=== PATIENT | female | born 1930 | race African-American/Black ===

== ENCOUNTER 2017-01-25 15:05 | Inpatient (IN) ==
[2017-01-25] MEDS ORDERED: ONDANSETRON 4 MG/2 ML VIAL IV PRN (15:09)
[2017-01-25] MEDS ORDERED: HYDROmorphone 2 MG/1 ML VIAL IV PRN (15:09)
[2017-01-25] MEDS ORDERED: oxyCODONE/ACETAMINOPHEN 5-325 MG TABLET PO PRN (15:09)
[2017-01-25] MEDS ORDERED: ACETAMINOPHEN 325 MG TABLET PO PRN (15:09)
[2017-01-25 16:20] LABS: Basophils % 0.3 % (0.0-0.8); Eosinophils # 0.3 10*3/uL (0.0-0.87); Eosinophils % 3.1 % (0.00-10.9); Hematocrit 33.6 VOL% (35.7-47.0); Immature Granulocytes % 0.6 %; Immature Granulocytes Absolute 0.06 #; Lymphocytes # 2.6 10*3/uL (1.4-4.0); Lymphocytes % 24.5 % (21.3-54.2); Mean Corpuscular HGB Conc 32.7 GM/DL (32-36); Mean Corpuscular Hemoglobin 29 PG (27-34); Mean Corpuscular Volume 89.1 FL (87-102); Mean Platelet Volume 9.6 FL (9.6-12.0); Monocytes # 0.6 10*3/uL (0.11-0.8); Monocytes % 5.1 % (1.7-12.7); Neutrophils # 7.1 10*3/uL (1.4-7.4); Neutrophils % 66.4 % (38.7-73.9); Platelet Count 228 T/CUMM (130-400); Red Blood Count 3.77 MC/CUMM (3.8-5.5); Red Cell Distribution Width 14.3 % (9.3-17.3); White Blood Count 10.7 T/CUMM (4-12)
[2017-01-25 16:32] LABS: PT Patient Result 10.2 SECS; Partial Thromboplastin Time 28.2 SECS (0-40)
[2017-01-25 16:37] LABS: Alanine Aminotransferase 14 U/L (13-56); Albumin 3.4 G/DL (3.4-5.0); Alkaline Phosphatase 138 U/L (45-117); Aspartate Amino Transferase 14 U/L (0-37); Bilirubin,Total < 0.39 MG/DL (0.2-1.0); Calcium 8.7 MG/DL (8.5-10.1); Total Protein 7.5 G/DL (6.4-8.3)
[2017-01-25 16:38] LABS: Blood Urea Nitrogen 25 MG/DL (7-18); Glucose 111 MG/DL (74-106); Magnesium 2.3 MG/DL (1.8-2.4); Osmolality,Calculated 285.3 MOS/KG (273-304); Potassium 3.7 MMOL/L (3.5-5.1); Sodium 141 MMOL/L (136-145)
--- NOTE | 2017-01-25 20:04 | XRay Report ---
XR chest 2V Indication: Preop Comparison: Chest x-ray 06/23/2015. Technique: PA and lateral chest x-ray was performed. Findings: Heart size, mediastinal contour, and hilar structures demonstrate no significant abnormalities. The lung parenchyma is clear. Bones and soft tissues demonstrate no significant abnormalities. Impression: 1. No active cardiopulmonary disease. 01/25/2017 8:01 PM PROCEDURE INTERPRETED AT [facility] DEPARTMENT OF RADIOLOGY Final Report Signed by: Dr. Rupesh Zacarias
--- NOTE | 2017-01-25 22:16 | General Surg History&Physical ---
Assessment and Plan - Time spent with patient Time spent with patient: Greater than 30 minutes (1) Abscess, perineum Status: Acute Assessment and plan: Impression: Right perineal abscess 2. Diabetes 3. Urinary incontinence Plan surgery and wound care. Current Visit: Yes History of Present Illness Chief complaint: abscess of the perirectal perineal area. History of present illness: Ms. Baumann is a 86 year old female black who has had mass with pain in the right perineal area for about a week. Attempts at squeezing the area only made it worse. She on exam has right perineal abscess and I will admit for surgery. She has a urinary incontinent problem that may make wound care difficult. Home Medications Medication Instructions Recorded Confirmed Type Aspirin [Ecotrin] 81 mg PO DAILY 01/25/17 01/25/17 History Atorvastatin [Lipitor] 20 mg PO BEDTIME 01/25/17 01/25/17 History Furosemide [Furosemide] 40 mg PO DAILY 01/25/17 01/25/17 History Glimepiride [Glimepiride] 1 mg PO DAILY 01/25/17 01/25/17 History Levothyroxine Tab [Synthroid Tab] 50 mcg PO DAILY@0700 01/25/17 01/25/17 History Lisinopril [Lisinopril] 5 mg PO BID 01/25/17 01/25/17 History Meloxicam [Meloxicam] 15 mg PO DAILY 01/25/17 01/25/17 History Metformin HCl 500 mg PO DAILY 01/25/17 01/25/17 History Potassium Chloride 20 meq PO DAILY 01/25/17 01/25/17 History sitaGLIPtin [Januvia] 100 mg PO DAILY W/BREAKFAST 01/25/17 01/25/17 History Allergies Allergy/AdvReac Type Severity Reaction Status Date / Time No Known Allergies Allergy Verified 06/23/15 14:39 Medical,Surgical,& Family Hx - Medical History Cardio: History of: Hypertension HEENT: History of: Eye Problem (GLASSES), Dental Problems (DENTURES) Endocrine: History of: Diabetes Mellitus (NIDDM), Thyroid Disorder Musculoskeletal: History of: Musculoskeletal Problems (Right ankle FX in Nov) - Surgical History Reproductive Surgeries: Surgical HX of;: Hysterectomy - Family History Family History: Reports;: Family Diabetes, Family Hypertension, Family Stroke - Social History Smoking Status: Never smoker Frequency of Alcohol Use: None Type of Drug Use: None Exam - Constitutional Vitals: Period Temp Pulse Resp BP Sys/Gutierrez Pulse Ox Last 24 Hr 97.6 F-98.1 F 64-73 16-18 129-139/67-70 98-99 General appearance: mild distress - Head Head exam: Present: normal inspection - ENT ENT exam: Present: normal exam - Neck Neck exam: Present: normal inspection - Respiratory Respiratory exam: Present: clear to auscultation bilaterally, rales - Cardiovascular Cardiovascular exam: Present: RRR - GI/Abdominal GI/Abdominal exam: Present: hypoactive bowel sounds, soft. Absent: tenderness - Anus/Rectum Anus/Rectum: other (Right perineal area with mass and small necrotic center.) - Extremities Exam Extremities exam: Present: normal inspection - Back Exam Back exam: Present: normal inspection - Neurological Exam Neurological exam: Present: alert, oriented X3, CN II-XII intact - Skin Skin exam: Present: normal color, warm, dry 12 point system: reviewed and no additional remarkable complaints except as stated Quality Measures - VTE Contraindication to Pharmacological VTE Prophylaxis: High Risk of Bleeding Results - Labs CBC & BMP: 01/25/17 16:13 01/25/17 16:12 Lab Results: I have reviewed the past 24 hour labs
[2017-01-25] MEDS: SODIUM CHLORIDE 0.45% 1,000 ML IV SCH (22:42)
[2017-01-25] MEDS: DOCUSATE SODIUM 100 MG CAPSULE PO SCH (22:42)
--- NOTE | 2017-01-26 06:27 | EKG Report ---
Stationary ECG Study [facility] Test Date: 01/25/2017 4:46:59 PM Pat Name: ERICA COATES Department: Room: Gender: F Clinical Project Assistant: JB : [id number] Requested by: Anup Cordon Order Number: [id number] Reading MD: SHERINE MELENDEZ Intervals [place] Rate: 65 P: 55 [place]: 182 QRS: -23 QRSD: 103 T: 33 QT: 393 QTc: 405 Interpretive Statements SINUS RHYTHM BORDERLINE LEFT AXIS DEVIATION Electronically Signed On 01-26-17 06:27:05 CDT by SHERINE MELENDEZ [email or web address]
[2017-01-26] MEDS ORDERED: BUPIVACAINE 0.25% 50 ML VIAL ONE (06:58)
[2017-01-26] MEDS ORDERED: LIDOCAINE 1%/EPI INJ 20 ML VIAL ONE (06:58)
[2017-01-26] MEDS: LACTATED RINGERS 1,000 ML IV SCH ×2 (07:00→13:36)
[2017-01-26] MEDS ORDERED: GLUCAGON 1 MG VIAL IM PRN (07:57)
[2017-01-26] MEDS ORDERED: DEXTROSE 50% 25 GM/50 ML SYRINGE IV PRN (07:57)
[2017-01-26] MEDS ORDERED: CHLORHEXIDINE 4% SOLN 118 ML BOTTLE TOP ONE (08:00)
--- NOTE | 2017-01-26 08:06 | Operative Note ---
Date of procedure: 01/26/17 Pre-op diagnosis: Abscess right perineal gluteal area Post-op diagnosis: same Procedure: Operative note: Preoperative diagnosis: Patient with a mass with draining and pain right peroneal gluteal area. Postop diagnosis: Right gluteal abscess mass possibly secondary to a sebaceous cyst Procedure: Excisional debridement of mass with drainage and deep debridement Surgeon Dr. Cordon Anesthesia was general with local Brief history: 86-year-old Afro-Citizen Of [place] female who has had about a week history of a mass in the perineal area just been tender and hurting her they attempted to drain it by squeezing it and it made it worse since she was referred over to us. We admitted her to put her on some IV antibiotics of the brain to surgery get this dealt with under control find it what we are dealing with. Procedure With patient in dorsal lithotomy position prepped and draped in a sterile fashion timeout and antibiotics completed approaches area of the right gluteal area rather than peritoneal. This was not near the anus at this time. The preop mass was 4 cm x 3 cm in size. With that I infiltrated with a local anesthetic. Then because of the central ulcerated areas I went ahead and ellipsed around that central area and it lipstick area completely out. There was some drainage which we cultured this time but there was evidence to me that there was little sebaceous cyst here. I excised the whole area with the knife and then I took the cautery and use electrocautery to controlling bleeding. I then ran a cautery on the base of this granulating base and along the edges to make sure I got all the cyst wall completely removed. Once that was completed and look fairly dry but a Dakin's wet gauze in there along with a bulky dressing took patient recovery room. We had irrigated with saline solution prior to her dressing. In the postop wound that is present now is 2.5 x 1.5 x 0.8 cm in size. Estimated blood loss 2 cc Sponge count correct 2 Drains none Complications none Condition stable satisfactory Anesthesia: GETA, local (0.25% Marcaine with epinephrine mixed [id number] 1% Xylocaine plain) Surgeon / Physician: Anup Cordon Estimated blood loss: minimal Specimens: other (Cultures and tissue for pathology) Condition: stable Disposition: floor Results - Labs CBC & BMP: 01/25/17 16:13 01/25/17 16:12 Discharge Plan - Discharge Medications No Action Levothyroxine Tab [Synthroid Tab] 50 mcg PO DAILY@0700 Atorvastatin [Lipitor] 20 mg PO BEDTIME sitaGLIPtin [Januvia] 100 mg PO DAILY W/BREAKFAST Meloxicam [Meloxicam] 15 mg PO DAILY Lisinopril [Lisinopril] 5 mg PO BID Furosemide [Furosemide] 40 mg PO DAILY Aspirin [Ecotrin] 81 mg PO DAILY Potassium Chloride 20 meq PO DAILY Metformin HCl 500 mg PO DAILY Glimepiride [Glimepiride] 1 mg PO DAILY - Follow Up or Referral - Forms/Instructions
--- NOTE | 2017-01-26 08:12 | Anesthesia Post-Op ---
Anesthesia Post OP - Post Ansesthetic Evaluation Patient seen in post op: Yes Resp: within normal limits CV: within normal limits Mental: within normal limits Temp: within normal limits [id number]-Da-Mlxpxcyvl: within normal limits Nausea and Vomiting: within normal limits Pain: within normal limits
[2017-01-26] MEDS ORDERED: ONDANSETRON 4 MG/2 ML VIAL ONE (08:14)
[2017-01-26] MEDS ORDERED: PROPOFOL 200 MG/20 ML VIAL IV ONE (08:14)
[2017-01-26] MEDS ORDERED: fentaNYL 100 MCG/2 ML VIAL ONE (08:14)
[2017-01-26] MEDS ORDERED: SEVOFLURANE 1 UNIT/15 MINUTE INH ONE (08:14)
[2017-01-26] MEDS: SODIUM HYPOCHLORITE 0.25% IRRIG 473 ML BOTTLE TOP SCH (10:16)
[2017-01-26] MEDS: BACITRACIN OINT 0.9 GM PACK TOP SCH (10:16)
[2017-01-26] MEDS: sitaGLIPtin 100 MG TABLET PO SCH (10:50)
[2017-01-26] MEDS: ASPIRIN EC 81 MG TABLET PO SCH (10:51)
[2017-01-26] MEDS: LISINOPRIL 5 MG TABLET PO SCH ×2 (10:51→23:03)
[2017-01-26] MEDS: MELOXICAM 7.5 MG TABLET PO SCH (10:51)
[2017-01-26] MEDS: GLIMEPIRIDE 2 MG TABLET PO SCH (10:51)
[2017-01-26] MEDS: FUROSEMIDE 40 MG TABLET PO SCH (10:52)
[2017-01-26] MEDS: DOCUSATE SODIUM 100 MG CAPSULE PO SCH ×2 (10:52→23:03)
[2017-01-26] MEDS: PANTOPRAZOLE 40 MG TABLET PO SCH (10:52)
[2017-01-26] MEDS: POTASSIUM CHLORIDE 20 MEQ TABLET PO SCH (10:52)
[2017-01-26] MEDS: metFORMIN 500 MG TABLET PO SCH (10:52)
[2017-01-26] MEDS ORDERED: PHENOL 1.4% THROAT SPRAY 177 ML BOTTLE PO PRN (11:19)
[2017-01-26] MEDS: INSULIN REGULAR 100 UNIT/ML SUBCUT SCH ×2 (13:02→16:41)
[2017-01-26] MEDS: ceFAZolin 2,000 MG in PREMIX 1 EACH IV SCH ×2 (13:49→23:03)
[2017-01-26] MEDS: SODIUM CHLORIDE 0.45% 1,000 ML IV SCH ×2 (16:40→18:45)
[2017-01-26] MEDS ORDERED: ATORVASTATIN 20 MG TABLET PO SCH (21:00)
--- NOTE | 2017-01-26 21:10 | Internal Medicine Consult Note ---
Assessment and Plan (1) Diabetes Status: Chronic Qualifiers: Diabetes mellitus type: type 2 Diabetes mellitus complication status: with skin complications Diabetes mellitus complication detail: with other skin ulcer Diabetes mellitus care home insulin use: without care home use Qualified Code(s): E11.622 - Type 2 diabetes mellitus with other skin ulcer (2) Hypertension Status: Chronic Qualifiers: Hypertension type: essential hypertension Qualified Code(s): I10 - Essential (primary) hypertension (3) Abscess, perineum Status: Acute (4) Chronic renal insufficiency Status: Chronic Qualifiers: Chronic kidney disease stage: stage 3 (moderate) Qualified Code(s): N18.3 - Chronic kidney disease, stage 3 (moderate) History of Present Illness - Data of Consult Consult date: 01/26/17 Requesting Physician: Anup Cordon Primary care physician: Lisa Smith - Consult Narrative Reason for consult: courtesy consult History of present illness: Ms. Baumann is a 86 year old female with history of DM, HTN, chronic renal insufficiency, OA, hypothyroid, who is in hospital for surgical debridement of perineum abscess. Home Health nurse had contacted clinic and we referred to Dr. Cordon for evaluation. She has had debridement and feeling better. Soon to go home. CC: Anup Cordon MD - Home Medications and Allergies Home Medications: Home Medications Medication Instructions Recorded Confirmed Type Aspirin [Ecotrin] 81 mg PO DAILY 01/25/17 01/25/17 History Atorvastatin [Lipitor] 20 mg PO BEDTIME 01/25/17 01/25/17 History Furosemide 40 mg PO DAILY 01/25/17 01/25/17 History Glimepiride 1 mg PO DAILY 01/25/17 01/25/17 History Levothyroxine Tab [Synthroid Tab] 50 mcg PO DAILY@0700 01/25/17 01/25/17 History Lisinopril 5 mg PO BID 01/25/17 01/25/17 History Meloxicam 15 mg PO DAILY 01/25/17 01/25/17 History Metformin HCl 500 mg PO DAILY 01/25/17 01/25/17 History Potassium Chloride 20 meq PO DAILY 01/25/17 01/25/17 History sitaGLIPtin [Januvia] 100 mg PO DAILY W/BREAKFAST 01/25/17 01/25/17 History Acetaminophen Tab [Tylenol Tab] 650 mg PO Q6H PRN tablet 01/27/17 Rx Sodium Hypochlorite 0.25% Irr 10 applic TOP DAILY #1 bottle 01/27/17 Rx [Dakins 1/2 Strength 0.25% Soln] Sulfameth/Trimeth 800-160 Tab 1 tablet PO BID #20 tablet 01/27/17 Rx [Bactrim DS Tab] oxyCODONE/ACETAMINOPHEN 5-325 1 tablet PO Q8H PRN #14 tablet 01/27/17 Rx [Percocet 5-325] Allergies/Adverse Reactions: Allergies Allergy/AdvReac Type Severity Reaction Status Date / Time No Known Allergies Allergy Verified 06/23/15 14:39 - Constitutional Constitutional: Present: weakness - Cardiovascular Cardiovascular: Absent: chest pain at rest - Respiratory Respiratory: Absent: cough, wheezing - Gastrointestinal Gastrointestinal: Absent: abdominal pain, nausea Medical,Surgical,& Family Hx - Medical History Cardio: History of: Hypertension Neurology: No history of: Seizures HEENT: History of: Eye Problem (GLASSES), Dental Problems (DENTURES) Endocrine: History of: Diabetes Mellitus (NIDDM), Thyroid Disorder Musculoskeletal: History of: Musculoskeletal Problems (Right ankle FX in Nov) - Surgical History Reproductive Surgeries: Surgical HX of;: Hysterectomy Orthopedic Surgeries: Surgical HX of;: Orthopedic Surgery (fx ankle) - Family History Family History: Reports;: Family Diabetes, Family Hypertension, Family Stroke - Social History Smoking Status: Never smoker Frequency of Alcohol Use: None Type of Drug Use: None Functional capacity: wheelchair bound Exam (Progress Note) - Constitutional Vitals: Period Temp Pulse Resp BP Sys/Gutierrez Pulse Ox Last 24 Hr 96.2 F-98.6 F 50-75 16-20 96-151/55-75 97-100 General appearance: no acute distress - Head Head exam: Present: normocephalic - Eye Eye exam: Present: EOMI - Respiratory Respiratory exam: Present: clear to auscultation bilaterally - Cardiovascular Cardiovascular exam: Present: regular rate and rhythm - GI/Abdominal GI/Abdominal exam: Present: soft. Absent: tenderness - Extremities Exam Extremities exam: Absent: edema - Neurological Exam Neurological exam: Present: alert - Psychiatric Psychiatric exam: Present: normal mood - Skin Skin exam: Present: warm, dry Results - Labs CBC & BMP: 01/27/17 05:20 01/27/17 05:20 Specialty Discharge - Follow Up or Referrals Follow up with: Anup Cordon MD [Primary Care Provider] - 02/25/17 10:45 am
[2017-01-27] MEDS: INSULIN REGULAR 100 UNIT/ML SUBCUT SCH ×3 (00:56→12:32)
[2017-01-27] MEDS ORDERED: ENOXAPARIN 40 MG/0.4 ML SYRINGE SUBCUT SCH (01:54)
[2017-01-27 05:55] LABS: Basophils % 0.1 % (0.0-0.8); Eosinophils # 0.3 10*3/uL (0.0-0.87); Eosinophils % 3.4 % (0.00-10.9); Hematocrit 28.1 VOL% (35.7-47.0); Hemoglobin 9.2 GM/DL (12.0-16.0); Immature Granulocytes % 0.7 %; Immature Granulocytes Absolute 0.06 #; Lymphocytes # 2.3 10*3/uL (1.4-4.0); Lymphocytes % 24.9 % (21.3-54.2); Mean Corpuscular HGB Conc 32.7 GM/DL (32-36); Mean Corpuscular Hemoglobin 29 PG (27-34); Monocytes # 0.4 10*3/uL (0.11-0.8); Monocytes % 4.9 % (1.7-12.7); Platelet Count 192 T/CUMM (130-400); Red Blood Count 3.23 MC/CUMM (3.8-5.5); Red Cell Distribution Width 13.9 % (9.3-17.3); White Blood Count 9.1 T/CUMM (4-12)
[2017-01-27 06:38] LABS: Calcium 8.6 MG/DL (8.5-10.1)
[2017-01-27] MEDS: SODIUM CHLORIDE 0.45% 1,000 ML IV SCH (06:49)
[2017-01-27] MEDS ORDERED: LEVOTHYROXINE 50 MCG TABLET PO SCH (07:00)
[2017-01-27] MEDS: MELOXICAM 7.5 MG TABLET PO SCH (08:55)
[2017-01-27] MEDS: GLIMEPIRIDE 2 MG TABLET PO SCH (08:55)
[2017-01-27] MEDS: DOCUSATE SODIUM 100 MG CAPSULE PO SCH (08:55)
[2017-01-27] MEDS: LISINOPRIL 5 MG TABLET PO SCH (08:55)
[2017-01-27] MEDS: metFORMIN 500 MG TABLET PO SCH (08:55)
[2017-01-27] MEDS: PANTOPRAZOLE 40 MG TABLET PO SCH (08:55)
[2017-01-27] MEDS: sitaGLIPtin 100 MG TABLET PO SCH (08:56)
[2017-01-27] MEDS: FUROSEMIDE 40 MG TABLET PO SCH (08:56)
[2017-01-27] MEDS: ASPIRIN EC 81 MG TABLET PO SCH (08:56)
[2017-01-27] MEDS: POTASSIUM CHLORIDE 20 MEQ TABLET PO SCH (08:56)
--- NOTE | 2017-01-27 09:17 | Discharge Summary ---
Hospital Course - Hospital Course Hospital Course: Discharge summary: Discharge diagnoses: Right gluteal abscess Urinary incontinence Procedure: Excisional debridement of right gluteal abscess with sebaceous cyst Surgeon Dr. Cordon Brief summary: 86-year-old Afro-[place] female who is admitted for an abscess in the right gluteal area. This is been going on for about a week and it got worse after they attempted to squeeze on it. She has been tender and sore difficult to sit down and it has not improved over time. Because they live pretty far away would put her in the hospital on some IV antibiotics like to bring her surgery at this time for further debridement. At the time of surgery were able to go ahead and excise this area finding what looked like a sebaceous cyst underneath this area. Once the wound bed was clean we packed and cleaned it and started to teach the patient and family how to care for. They feel pretty comfortable with the care of this ends her pain and discomfort is much better. Labs are stable so we will go ahead and plan to discharge her lithium continue home health care and be sure that they can get this wound in shape. Patient has a problem with some urinary incontinence and is can make it a challenge to keep a good clean dressing over this area and keep it dry. - Time spent with patient Time with patient DS: Less than 30 minutes Diagnosis - Discharge Diagnosis (1) Abscess, perineum Status: Acute (2) Urinary incontinence Status: Chronic Specialty Discharge - Follow Up or Referrals Follow up with: Anup Cordon MD [Primary Care Provider] - 1 Month - Speciality Discharge Instructions Surgery Instructions: 1. Continue some home health care to count to try to get this wound under control. 2. Try to limit sitting is much as possible. 3. Change dressing often as needed especially if she has any urines that gets into the wound bed Discharge Plan - Discharge Data Disposition: Home Health Service Condition at Discharge: Stable Discharge Diet: advance to your usual diet Activity: increase activity as tolerated, other (Sit only on the special pad and try to avoid prolonged sitting) Hygiene: may shower, keep area(s) dry (Attempt to keep the area and the dressings are clean and dry as possible changing him as needed) Weight Bearing at Discharge: weight bear as tolerated Contact your physician if you experience:: fever over 101, Redness or swelling, Bleeding, pain uncontrolled by pain medications Wound / Dressing Care Instructions: Wound care twice a day to the right gluteal wound. 1. Wash with Hibiclens. 2. Irrigate the wound with 10 cc of half- strength Dakin's. 3. Apply bacitracin ointment to the wound bed. 4. Try to cover with Mepilex border gauze or island dressing - Discharge Medications New Acetaminophen Tab [Tylenol Tab] 650 mg PO Q6H PRN tablet PRN Reason: Pain Mild (1-3) And/Or Fever Sodium Hypochlorite 0.25% Irr [Dakins 1/2 Strength 0.25% Soln] 10 applic TOP DAILY #1 bottle Sulfameth/Trimeth 800-160 Tab [Bactrim DS Tab] 1 tablet PO BID #20 tablet oxyCODONE/ACETAMINOPHEN 5-325 [Percocet 5-325] 1 tablet PO Q8H PRN #14 tablet PRN Reason: Pain Moderate (4-7) Continue Levothyroxine Tab [Synthroid Tab] 50 mcg PO DAILY@0700 Atorvastatin [Lipitor] 20 mg PO BEDTIME sitaGLIPtin [Januvia] 100 mg PO DAILY W/BREAKFAST Meloxicam 15 mg PO DAILY Lisinopril 5 mg PO BID Furosemide 40 mg PO DAILY Aspirin [Ecotrin] 81 mg PO DAILY Potassium Chloride 20 meq PO DAILY Metformin HCl 500 mg PO DAILY Glimepiride 1 mg PO DAILY - Follow Up or Referral - Forms/Instructions Exam - Constitutional Vitals: Period Temp Pulse Resp BP Sys/Gutierrez Pulse Ox Last 24 Hr 96.2 F-98.7 F 50-79 16-20 115-151/56-80 97-100 General appearance: no acute distress - Head Head exam: Present: normal inspection - ENT ENT exam: Present: normal exam - Neck Neck exam: Present: normal inspection - Respiratory Respiratory exam: Present: rales - Cardiovascular Cardiovascular exam: Present: regular rate and rhythm - GI/Abdominal GI/Abdominal exam: Present: hypoactive bowel sounds, soft, other (Right gluteal wound is looking good and clean and showing no signs of any unusual swelling) - Extremities Exam Extremities exam: Present: normal inspection - Back Exam Back exam: Present: normal inspection - Neurological Exam Neurological exam: Present: alert, oriented X3, CN II-XII intact - Psychiatric Psychiatric exam: Present: normal affect, normal mood - Skin Skin exam: Present: normal color, warm, dry Discharge Results Procedures and tests throughout hospitalization: Pending Orders 08/08/17 07:50 Abscess Culture Routine Anaerobic Culture Routine Labs on day of discharge: Labs from last 24 hours 01/27/17 01/27/17 01/27/17 07:09 05:20 05:20 WBC 9.1 RBC 3.23 L Hgb 9.2 L Hct 28.1 L MCV 87.0 MCH 29 MCHC 32.7 RDW 13.9 Plt Count 192 MPV 10.0 Neut % (Auto) 66.0 Lymph % (Auto) 24.9 Garrard % (Auto) 4.9 Eos % (Auto) 3.4 Baso % (Auto) 0.1 Neut # (Auto) 6.0 Lymph # (Auto) 2.3 Garrard # (Auto) 0.4 Eos # (Auto) 0.3 Baso # (Auto) 0.0 Immature Gran % 0.7 Nucleated RBC % 0.0 Immature Gran # 0.06 Nucleated RBCs # 0.00 Immature Plt Fraction 0.0 Sodium 143 Potassium 4.0 Chloride 109 H Carbon Dioxide 28 Anion Gap 10.0 BUN 20 H Creatinine 1.60 H GFR Calculation 38 BUN/Creatinine Ratio 12.00 Glucose 104 POC Glucose 138 H Calculated Osmolality 287.0 Calcium 8.6 01/26/17 01/26/17 01/26/17 19:56 15:33 10:59 WBC RBC Hgb Hct MCV MCH MCHC RDW Plt Count MPV Neut % (Auto) Lymph % (Auto) Garrard % (Auto) Eos % (Auto) Baso % (Auto) Neut # (Auto) Lymph # (Auto) Garrard # (Auto) Eos # (Auto) Baso # (Auto) Immature Gran % Nucleated RBC % Immature Gran # Nucleated RBCs # Immature Plt Fraction Sodium Potassium Chloride Carbon Dioxide Anion Gap BUN Creatinine GFR Calculation BUN/Creatinine Ratio Glucose POC Glucose 104 139 H 160 H Calculated Osmolality Calcium 01/26/17 10:19 WBC RBC Hgb Hct MCV MCH MCHC RDW Plt Count MPV Neut % (Auto) Lymph % (Auto) Garrard % (Auto) Eos % (Auto) Baso % (Auto) Neut # (Auto) Lymph # (Auto) Garrard # (Auto) Eos # (Auto) Baso # (Auto) Immature Gran % Nucleated RBC % Immature Gran # Nucleated RBCs # Immature Plt Fraction Sodium Potassium Chloride Carbon Dioxide Anion Gap BUN Creatinine GFR Calculation BUN/Creatinine Ratio Glucose POC Glucose 176 H Calculated Osmolality Calcium DS: Provider Date of admission: 01/25/17 15:35 Primary care physician: Anup Cordon MD Attending physician on admission: Anup Cordon MD Consults: 01/25/17 15:16 Consult to Anesthesiology [CONS] Routine Consulting Provider: Reason for Anesthesiology: Pre-op Clearance Consult to Physician [CONS] Routine Comment: Consulting Provider: Lisa Smith Consulting Provider Notified: Yes When should Consulting Provider be notified: Now Person Notified: letty called Date Notified: 01/26/17 Time Notified: 08:53 Consult Notification Comment: patient known to you for surgery tomorrow for perineal abscess. 01/25/17 17:15 Consult to Pastoral Services [CONS] Routine Comment: Pastoral Screen: Request Assault Amphibious Vehicle Crewman Visit Pastoral Screen Source of Request: Family 01/26/17 07:52 Consult to Wound Care - [place] [CONS] Routine Reason for Wound Care: Wound Care Management Consult Comment: teach family on how to do wound care. 01/26/17 08:01 Consult to Case Mgmt/Social Srvs [CONS] Routine Reason for Case Mgmt/Social Srvs: Discharge Planning Consult Comment: home health for wound care Discharging clinician: Anup Cordon MD Expected date of discharge: 01/27/17
[2017-01-27 11:32] VITALS: BP 108/52
--- NOTE | 2017-01-27 12:19 | Pathology Report from [facility] ---
[facility] [place] : [id number] PATIENT NAME : Erica Baumann ORDERING DR : MARLEN CASTRO MD CLINICAL HX: RT perineal abscess POST-OP DX: Same SPECIMEN INFO: RT perineal abscess tissue GROSS DESCRIPTION: The specimen is received in formalin labeled ERICA BAUMANN consists of a 2.3 x 1.0 x 0.5 cm adair-brown ellipse of skin and attached subcutaneous tissue. A erythematous ulcerated area on skin surface measures 0.7 cm. Music Leader section submitted in one cassette. DIAGNOSIS FOR ERICA BAUMANN: RIGHT PERINEAL ABSCESS TISSUE, I & D: Abscess with marked acute inflammation and necrosis. COLLECTED DATE: 01/26/2017 [facility] REPORT DATE: 01/27/2017 ELECTRONICALLY SIGNED BY: Miryam Gasca M.D. 01/27/2017 - 9:38:19 [facility]
[2017-01-27] MEDS: BACITRACIN OINT 0.9 GM PACK TOP SCH (12:32)
[2017-01-27] MEDS: SODIUM HYPOCHLORITE 0.25% IRRIG 473 ML BOTTLE TOP SCH (12:32)
== END 2017-01-27 13:25 | disposition home health service (06) | DRG 572 ==
LOC: N.3E 15:35
PROVIDERS: ADMIT Specialist; ATTEND Specialist

== ENCOUNTER 2019-01-03 02:53 | Inpatient (IN) ==
[2019-01-03 04:32] LABS: Basophils % 0.1 % (0.0-0.8); Eosinophils # 0.2 10*3/uL (0.0-0.87); Eosinophils % 1.7 % (0.00-10.9); Hemoglobin 10.4 GM/DL (12.0-16.0); Immature Granulocytes % 0.4 %; Immature Granulocytes Absolute 0.06 #; Lymphocytes # 2.2 10*3/uL (1.4-4.0); Lymphocytes % 15.8 % (21.3-54.2); Mean Corpuscular HGB Conc 31.5 GM/DL (32-36); Mean Corpuscular Volume 91.2 FL (87-102); Mean Platelet Volume 9.8 FL (9.6-12.0); Monocytes % 5.6 % (1.7-12.7); Neutrophils % 76.4 % (38.7-73.9); Platelet Count 238 T/CUMM (130-400); Red Blood Count 3.62 MC/CUMM (3.8-5.5); Red Cell Distribution Width 14.1 % (9.3-17.3); White Blood Count 13.7 T/CUMM (4-12)
[2019-01-03 04:45] LABS: INR 0.9; PT Patient Result 9.9 SECS; Partial Thromboplastin Time 27.8 SECS (0-40)
[2019-01-03] MEDS ORDERED: hydrALAZINE 20 MG/1 ML VIAL IV STA ×2 (04:54→06:51)
[2019-01-03 04:57] LABS: Amorphous Crystals,Urine Occasional /HPF (Few); Apearance,Urine CLEAR (Clear); Bacteria,Urine Occasional /HPF (Few); Bilirubin,Urine Negative (Negative); Blood, Urine Negative (Negative); Glucose,Urine (UA) Negative (Negative); Ketones,Urine Negative (Negative); Mucus,Urine Occasional /LPF (Occasional); Nitrite,Urine Negative (Negative); Protein,Urine Negative; RBC,Urine 1 /HPF (0-4); Squamous Epithelial Cell,Urine Occasional /HPF (0-10); Urine Color Straw (Yellow); Urine Specific Gravity 1.006 (1.001-1.035); Urine Urobilinogen < 2.0 EU/DL (0.2-1.0); WBC,Urine 1 /HPF (0-6)
[2019-01-03 04:58] LABS: Albumin 2.9 G/DL (3.4-5.0); Bilirubin,Total 0.9 MG/DL (0.2-1.0); Calcium 9.2 MG/DL (8.5-10.1); Osmolality,Calculated 277.1 MOS/KG (273-304); Total Protein 7.8 G/DL (6.4-8.3)
[2019-01-03] MEDS ORDERED: MORPHINE 4 MG/1 ML VIAL IV STA (07:13)
[2019-01-03] MEDS ORDERED: FAMOTIDINE 20 MG/2 ML VIAL IV STA (07:13)
[2019-01-03] MEDS ORDERED: PIPERACILLIN/TAZOBACTAM 3,375 MG in SODIUM CHLORIDE 0.9% 100 ML IV STA (07:13)
[2019-01-03] MEDS ORDERED: ONDANSETRON 4 MG/2 ML VIAL IV ONE (07:13)
[2019-01-03] MEDS ORDERED: ACETAMINOPHEN 325 MG TABLET PO PRN (09:16)
[2019-01-03] MEDS ORDERED: HYDROmorphone 2 MG/1 ML VIAL IV PRN (09:16)
[2019-01-03] MEDS ORDERED: LACTATED RINGERS 1,000 ML IV SCH (09:16)
[2019-01-03] MEDS ORDERED: ONDANSETRON 4 MG/2 ML VIAL IV PRN (09:16)
[2019-01-03] MEDS ORDERED: PROMETHAZINE 25 MG/1 ML VIAL IM PRN (09:16)
[2019-01-03] MEDS ORDERED: GLUCAGON 1 MG VIAL IM PRN (09:45)
[2019-01-03] MEDS ORDERED: DEXTROSE 50% 25 GM/50 ML VIAL IV PRN (09:45)
[2019-01-03] MEDS: LEVOTHYROXINE 75 MCG TABLET PO SCH (09:56)
[2019-01-03] MEDS: PANTOPRAZOLE 40 MG TABLET PO SCH (09:57)
[2019-01-03] MEDS: PIPERACILLIN/TAZOBACTAM 3,375 MG in SODIUM CHLORIDE 0.9% 100 ML IV SCH ×2 (11:00→17:32)
[2019-01-03] MEDS: SODIUM CHLORIDE 0.45% 1,000 ML IV SCH ×2 (11:18→17:36)
[2019-01-03] MEDS: INSULIN LISPRO 100 UNIT/ML SUBCUT SCH ×2 (12:07→17:32)
[2019-01-03] MEDS: LISINOPRIL 5 MG TABLET PO SCH (21:01)
[2019-01-04] MEDS: INSULIN LISPRO 100 UNIT/ML SUBCUT SCH ×4 (00:02→18:16)
[2019-01-04] MEDS: ENOXAPARIN 40 MG/0.4 ML SYRINGE SUBCUT SCH (02:45)
[2019-01-04] MEDS: SODIUM CHLORIDE 0.45% 1,000 ML IV SCH ×4 (03:54→20:40)
[2019-01-04] MEDS: PIPERACILLIN/TAZOBACTAM 3,375 MG in SODIUM CHLORIDE 0.9% 100 ML IV SCH ×3 (03:54→20:43)
[2019-01-04 05:49] LABS: Basophils % 0.2 % (0.0-0.8); Eosinophils # 0.3 10*3/uL (0.0-0.87); Eosinophils % 3.1 % (0.00-10.9); Hematocrit 31.7 VOL% (35.7-47.0); Hemoglobin 9.8 GM/DL (12.0-16.0); Immature Granulocytes % 0.3 %; Immature Granulocytes Absolute 0.03 #; Lymphocytes % 21.9 % (21.3-54.2); Mean Corpuscular HGB Conc 30.9 GM/DL (32-36); Mean Corpuscular Volume 93.5 FL (87-102); Mean Platelet Volume 9.7 FL (9.6-12.0); Monocytes % 5.7 % (1.7-12.7); Neutrophils % 68.8 % (38.7-73.9); Platelet Count 226 T/CUMM (130-400); Red Blood Count 3.39 MC/CUMM (3.8-5.5); Red Cell Distribution Width 14.5 % (9.3-17.3); White Blood Count 9.1 T/CUMM (4-12)
[2019-01-04 06:20] LABS: Albumin 2.7 G/DL (3.4-5.0); Bilirubin,Total 0.6 MG/DL (0.2-1.0); Total Protein 7.2 G/DL (6.4-8.3)
[2019-01-04] MEDS: LEVOTHYROXINE 75 MCG TABLET PO SCH (06:55)
[2019-01-04] MEDS: CYANOCOBALAMIN 500 MCG TABLET PO SCH (08:50)
[2019-01-04] MEDS: LISINOPRIL 5 MG TABLET PO SCH (08:50)
[2019-01-04] MEDS: ASPIRIN EC 325 MG TABLET PO SCH (08:53)
[2019-01-04] MEDS: MAGNESIUM OXIDE 400 MG TABLET PO SCH (08:53)
[2019-01-04] MEDS: PANTOPRAZOLE 40 MG TABLET PO SCH (08:53)
[2019-01-04] MEDS: CALCIUM (CARBONATE)/VITAMIN D 600 MG-400 UNIT TABLET PO SCH (08:53)
[2019-01-04] MEDS ORDERED: MIDAZOLAM 2 MG/2 ML VIAL IV ONE (14:14)
[2019-01-04] MEDS ORDERED: fentaNYL 100 MCG/2 ML VIAL IV ONE (14:14)
[2019-01-04] MEDS ORDERED: ONDANSETRON 4 MG/2 ML VIAL IV ONE (14:14)
[2019-01-04] MEDS ORDERED: fentaNYL 100 MCG/2 ML VIAL ONE (14:38)
[2019-01-04] MEDS ORDERED: MIDAZOLAM 2 MG/2 ML VIAL ONE (14:38)
[2019-01-04] MEDS ORDERED: ONDANSETRON 4 MG/2 ML VIAL ONE (14:39)
[2019-01-05] MEDS: LISINOPRIL 5 MG TABLET PO SCH ×3 (00:04→20:49)
[2019-01-05] MEDS: INSULIN LISPRO 100 UNIT/ML SUBCUT SCH ×4 (01:07→18:36)
[2019-01-05] MEDS: ENOXAPARIN 40 MG/0.4 ML SYRINGE SUBCUT SCH (01:08)
[2019-01-05] MEDS: PIPERACILLIN/TAZOBACTAM 3,375 MG in SODIUM CHLORIDE 0.9% 100 ML IV SCH ×3 (03:39→20:51)
[2019-01-05] MEDS: LEVOTHYROXINE 75 MCG TABLET PO SCH (07:05)
[2019-01-05] MEDS: PANTOPRAZOLE 40 MG TABLET PO SCH (09:49)
[2019-01-05] MEDS: CYANOCOBALAMIN 500 MCG TABLET PO SCH (09:49)
[2019-01-05] MEDS: CALCIUM (CARBONATE)/VITAMIN D 600 MG-400 UNIT TABLET PO SCH (09:50)
[2019-01-05] MEDS: MAGNESIUM OXIDE 400 MG TABLET PO SCH (09:50)
[2019-01-05] MEDS: ASPIRIN EC 325 MG TABLET PO SCH (09:55)
[2019-01-05] MEDS: SODIUM CHLORIDE 0.45% 1,000 ML IV SCH ×2 (10:00→14:16)
[2019-01-06] MEDS: INSULIN LISPRO 100 UNIT/ML SUBCUT SCH ×4 (01:37→18:06)
[2019-01-06] MEDS: ENOXAPARIN 40 MG/0.4 ML SYRINGE SUBCUT SCH (01:38)
[2019-01-06] MEDS: PIPERACILLIN/TAZOBACTAM 3,375 MG in SODIUM CHLORIDE 0.9% 100 ML IV SCH ×2 (03:52→14:42)
[2019-01-06 04:55] LABS: Basophils % 0.2 % (0.0-0.8); Eosinophils # 0.3 10*3/uL (0.0-0.87); Eosinophils % 2.8 % (0.00-10.9); Hematocrit 27.5 VOL% (35.7-47.0); Hemoglobin 8.5 GM/DL (12.0-16.0); Immature Granulocytes % 0.5 %; Immature Granulocytes Absolute 0.06 #; Lymphocytes # 2.2 10*3/uL (1.4-4.0); Lymphocytes % 19.3 % (21.3-54.2); Mean Corpuscular HGB Conc 30.9 GM/DL (32-36); Mean Platelet Volume 9.8 FL (9.6-12.0); Monocytes % 8.1 % (1.7-12.7); Neutrophils % 69.1 % (38.7-73.9); Platelet Count 212 T/CUMM (130-400); Red Blood Count 2.99 MC/CUMM (3.8-5.5); Red Cell Distribution Width 14.4 % (9.3-17.3); White Blood Count 11.5 T/CUMM (4-12)
[2019-01-06 05:24] LABS: Alanine Aminotransferase 37 U/L (13-56); Albumin 2.4 G/DL (3.4-5.0); Alkaline Phosphatase 99 U/L (45-117); Aspartate Amino Transferase 51 U/L (0-37); Bilirubin,Total < 0.39 MG/DL (0.2-1.0); Blood Urea Nitrogen 22 MG/DL (7-18); Calcium 8.6 MG/DL (8.5-10.1); Glucose 144 MG/DL (74-106); Osmolality,Calculated 280.7 MOS/KG (273-304); Total Protein 6.5 G/DL (6.4-8.3)
[2019-01-06] MEDS: LEVOTHYROXINE 75 MCG TABLET PO SCH (07:04)
[2019-01-06] MEDS: CALCIUM (CARBONATE)/VITAMIN D 600 MG-400 UNIT TABLET PO SCH (10:19)
[2019-01-06] MEDS: MAGNESIUM OXIDE 400 MG TABLET PO SCH (10:20)
[2019-01-06] MEDS: PANTOPRAZOLE 40 MG TABLET PO SCH (10:20)
[2019-01-06] MEDS: ASPIRIN EC 325 MG TABLET PO SCH (10:20)
[2019-01-06] MEDS: CYANOCOBALAMIN 500 MCG TABLET PO SCH (10:20)
[2019-01-06] MEDS: LISINOPRIL 5 MG TABLET PO SCH ×2 (10:20→21:35)
[2019-01-06] MEDS: SODIUM CHLORIDE 0.45% 1,000 ML IV SCH ×2 (10:23→10:24)
[2019-01-06] MEDS ORDERED: SODIUM PHOSPHATE ENEMA 133 ML BOTTLE RECTAL ONE (11:27)
[2019-01-06] MEDS: CIPROFLOXACIN 500 MG TABLET PO SCH (21:36)
[2019-01-07] MEDS: INSULIN LISPRO 100 UNIT/ML SUBCUT SCH ×4 (00:30→19:44)
[2019-01-07] MEDS: ENOXAPARIN 40 MG/0.4 ML SYRINGE SUBCUT SCH (01:55)
[2019-01-07] MEDS: LEVOTHYROXINE 75 MCG TABLET PO SCH (06:40)
[2019-01-07] MEDS: MAGNESIUM OXIDE 400 MG TABLET PO SCH (09:25)
[2019-01-07] MEDS: LISINOPRIL 5 MG TABLET PO SCH ×2 (09:25→21:29)
[2019-01-07] MEDS: CIPROFLOXACIN 500 MG TABLET PO SCH ×2 (09:25→21:29)
[2019-01-07] MEDS: CALCIUM (CARBONATE)/VITAMIN D 600 MG-400 UNIT TABLET PO SCH (09:25)
[2019-01-07] MEDS: ASPIRIN EC 325 MG TABLET PO SCH (09:25)
[2019-01-07] MEDS: PANTOPRAZOLE 40 MG TABLET PO SCH (09:50)
[2019-01-07] MEDS: CYANOCOBALAMIN 500 MCG TABLET PO SCH (11:39)
[2019-01-08] MEDS: INSULIN LISPRO 100 UNIT/ML SUBCUT SCH ×4 (00:50→17:39)
[2019-01-08] MEDS: ENOXAPARIN 40 MG/0.4 ML SYRINGE SUBCUT SCH (02:49)
[2019-01-08] MEDS: LEVOTHYROXINE 75 MCG TABLET PO SCH (06:16)
[2019-01-08] MEDS: CALCIUM (CARBONATE)/VITAMIN D 600 MG-400 UNIT TABLET PO SCH (09:29)
[2019-01-08] MEDS: CYANOCOBALAMIN 500 MCG TABLET PO SCH (09:29)
[2019-01-08] MEDS: MAGNESIUM OXIDE 400 MG TABLET PO SCH (09:29)
[2019-01-08] MEDS: LISINOPRIL 5 MG TABLET PO SCH ×2 (09:29→20:52)
[2019-01-08] MEDS: ASPIRIN EC 325 MG TABLET PO SCH (09:30)
[2019-01-08] MEDS: CIPROFLOXACIN 500 MG TABLET PO SCH ×2 (09:30→20:52)
[2019-01-08] MEDS: PANTOPRAZOLE 40 MG TABLET PO SCH (09:30)
[2019-01-08] MEDS: NICOTINE 14 MG/24 HR PATCH TRANSDERM SCH (09:31)
[2019-01-09] MEDS: INSULIN LISPRO 100 UNIT/ML SUBCUT SCH ×3 (00:18→12:25)
[2019-01-09] MEDS: ENOXAPARIN 40 MG/0.4 ML SYRINGE SUBCUT SCH (02:57)
[2019-01-09] MEDS: LEVOTHYROXINE 75 MCG TABLET PO SCH (06:23)
[2019-01-09] MEDS: CIPROFLOXACIN 500 MG TABLET PO SCH (09:17)
[2019-01-09] MEDS: LISINOPRIL 5 MG TABLET PO SCH (09:17)
[2019-01-09] MEDS: MAGNESIUM OXIDE 400 MG TABLET PO SCH (09:18)
[2019-01-09] MEDS: PANTOPRAZOLE 40 MG TABLET PO SCH (09:18)
[2019-01-09] MEDS: CALCIUM (CARBONATE)/VITAMIN D 600 MG-400 UNIT TABLET PO SCH (09:18)
[2019-01-09] MEDS: ASPIRIN EC 325 MG TABLET PO SCH (09:18)
[2019-01-09] MEDS: NICOTINE 14 MG/24 HR PATCH TRANSDERM SCH (09:18)
[2019-01-09] MEDS: CYANOCOBALAMIN 500 MCG TABLET PO SCH (09:18)
[2019-01-09 12:20] VITALS: BP 157/61
== END 2019-01-09 14:05 | disposition swing bed (61) | DRG 445 ==
LOC: EDUNIT# → EDBD → N.ED 02:53 → N.EDINP 08:03 → N.3E 08:31
PROVIDERS: ADMIT Surgery; ATTEND Surgery

== ENCOUNTER 2019-08-23 09:50 | Inpatient (IN) ==
[2019-08-23 11:15] LABS: Basophils % 0.3 % (0.0-0.8); Eosinophils # 0.4 10*3/uL (0.0-0.87); Eosinophils % 3.3 % (0.00-10.9); Hematocrit 42.4 VOL% (35.7-47.0); Hemoglobin 13.2 GM/DL (12.0-16.0); Immature Granulocytes % 0.5 %; Immature Granulocytes Absolute 0.06 #; Lymphocytes # 1.9 10*3/uL (1.4-4.0); Lymphocytes % 16.6 % (21.3-54.2); Mean Corpuscular HGB Conc 31.1 GM/DL (32-36); Mean Corpuscular Volume 92.2 FL (87-102); Mean Platelet Volume 10.1 FL (9.6-12.0); Monocytes % 4.5 % (1.7-12.7); Neutrophils % 74.8 % (38.7-73.9); Platelet Count 181 T/CUMM (130-400); Red Cell Distribution Width 15.9 % (9.3-17.3); White Blood Count 11.6 T/CUMM (4-12)
[2019-08-23 11:33] LABS: Alanine Aminotransferase 19 U/L (13-56); Albumin 3.5 G/DL (3.4-5.0); Alkaline Phosphatase 92 U/L (45-117); Aspartate Amino Transferase 36 U/L (0-37); Bilirubin,Total < 0.39 MG/DL (0.2-1.0); Blood Urea Nitrogen 14 MG/DL (7-18); Calcium 9.8 MG/DL (8.5-10.1); Estimated Glom Filtration Rate 58 ML/MIN; Glucose 182 MG/DL (74-106); Osmolality,Calculated 273.2 MOS/KG (273-304); Total Protein 8.5 G/DL (6.4-8.3)
[2019-08-23] MEDS ORDERED: SODIUM CHLORIDE 0.9% 500 ML IV STA (11:41)
[2019-08-23 12:33] LABS: INR 0.9; Partial Thromboplastin Time 25.4 SECS (20.8-36.0)
[2019-08-23 12:34] LABS: PT Patient Result 10.1 SECS (9.6-12.2)
[2019-08-23 12:52] LABS: Apearance,Urine CLEAR (Clear); Bilirubin,Urine Negative (Negative); Blood, Urine Negative (Negative); Glucose,Urine (UA) Negative (Negative); Hyaline Casts,Urine 1 /LPF (0-3); Ketones,Urine Negative (Negative); Mucus,Urine Occasional /LPF (Occasional); Nitrite,Urine Negative (Negative); Protein,Urine Negative; RBC,Urine 1 /HPF (0-4); Squamous Epithelial Cell,Urine Occasional /HPF (0-10); Urine Color Yellow (Yellow); Urine Specific Gravity 1.025 (1.001-1.035); Urine Urobilinogen < 2.0 EU/DL (0.2-1.0); WBC,Urine <1 /HPF (0-6)
[2019-08-23] MEDS ORDERED: ALBUTEROL/IPRATROPIUM 3 ML NEB RESP TX STA (13:09)
[2019-08-23] MEDS ORDERED: methylPREDNISolone SOD SUC 125 MG/2 ML VIAL IV STA (13:25)
[2019-08-23] MEDS ORDERED: cefTRIAXone 1,000 MG in SODIUM CHLORIDE 0.9% 100 ML IV STA (13:48)
[2019-08-23] MEDS ORDERED: GLUCAGON 1 MG VIAL IM PRN (16:02)
[2019-08-23] MEDS ORDERED: DEXTROSE 50% 25 GM/50 ML VIAL IV PRN (16:02)
[2019-08-23] MEDS ORDERED: SKIN HEALING OINT (AQUAPHOR) 50 GM TUBE TOP PRN (16:04)
[2019-08-23] MEDS ORDERED: INFLUENZA VIRUS VACCINE 0.5 ML SYRINGE IM ONE (16:20)
[2019-08-23] MEDS ORDERED: cefTRIAXone 500 MG in SYRINGE 1 EACH IV SCH (17:00)
[2019-08-23] MEDS ORDERED: ONDANSETRON 4 MG/2 ML VIAL IV PRN (17:32)
[2019-08-23] MEDS: methylPREDNISolone SOD SUC 40 MG/1 ML VIAL IV SCH ×2 (17:53→23:36)
[2019-08-23] MEDS: ASPIRIN EC 325 MG TABLET PO SCH (17:53)
[2019-08-23] MEDS: INSULIN REGULAR 100 UNIT/ML SUBCUT SCH ×2 (17:53→20:56)
[2019-08-23] MEDS ORDERED: ALBUTEROL/IPRATROPIUM 3 ML NEB RESP TX SCH (19:00)
[2019-08-23] MEDS: ALBUTEROL/IPRATROPIUM 3 ML NEB RESP TX SCH (19:05)
[2019-08-23] MEDS: BUDESONIDE 0.25 MG/2 ML NEB RESP TX SCH (19:07)
[2019-08-23] MEDS: GLIMEPIRIDE 2 MG TABLET PO SCH (20:57)
[2019-08-23] MEDS ORDERED: DOCUSATE SODIUM 100 MG CAPSULE PO SCH (21:00)
[2019-08-23] MEDS: AZITHROMYCIN INJ 250 MG in SODIUM CHLORIDE 0.9% 250 ML IV SCH (23:36)
[2019-08-24] MEDS: ALBUTEROL/IPRATROPIUM 3 ML NEB RESP TX SCH ×4 (00:05→19:50)
[2019-08-24 06:23] LABS: Basophils % 0.1 % (0.0-0.8); Hemoglobin 12.3 GM/DL (12.0-16.0); Immature Granulocytes % 0.7 %; Immature Granulocytes Absolute 0.06 #; Lymphocytes % 11.6 % (21.3-54.2); Mean Corpuscular HGB Conc 31.5 GM/DL (32-36); Mean Corpuscular Volume 91.5 FL (87-102); Mean Platelet Volume 9.8 FL (9.6-12.0); Monocytes % 2.5 % (1.7-12.7); Neutrophils % 85.1 % (38.7-73.9); Platelet Count 204 T/CUMM (130-400); Red Blood Count 4.26 MC/CUMM (3.8-5.5); Red Cell Distribution Width 15.5 % (9.3-17.3); White Blood Count 8.9 T/CUMM (4-12)
[2019-08-24 06:53] LABS: Calcium 9.1 MG/DL (8.5-10.1); Osmolality,Calculated 277.2 MOS/KG (273-304); Thyroid Stimulating Hormone 2.03 uIU/ml (0.358-3.74)
[2019-08-24] MEDS: BUDESONIDE 0.25 MG/2 ML NEB RESP TX SCH ×2 (08:34→19:50)
[2019-08-24] MEDS ORDERED: LEVOTHYROXINE 75 MCG TABLET PO SCH (09:00)
[2019-08-24] MEDS: DOCUSATE SODIUM 100 MG CAPSULE PO SCH (09:41)
[2019-08-24] MEDS: methylPREDNISolone SOD SUC 40 MG/1 ML VIAL IV SCH ×2 (09:41→17:25)
[2019-08-24] MEDS: INSULIN REGULAR 100 UNIT/ML SUBCUT SCH ×4 (09:41→21:45)
[2019-08-24] MEDS: GLIMEPIRIDE 2 MG TABLET PO SCH ×2 (09:41→21:38)
[2019-08-24] MEDS: FLUTICASONE 50 MCG NASAL SPRAY 16 GM BOTTLE BOTH NARES SCH (09:42)
[2019-08-24] MEDS: ASPIRIN EC 325 MG TABLET PO SCH (09:42)
[2019-08-24] MEDS: MAGNESIUM OXIDE 400 MG TABLET PO SCH (09:42)
[2019-08-24] MEDS: cefTRIAXone 500 MG in SYRINGE 1 EACH IV SCH (09:42)
[2019-08-24] MEDS: AZITHROMYCIN INJ 250 MG in SODIUM CHLORIDE 0.9% 250 ML IV SCH (21:39)
[2019-08-25] MEDS: SODIUM CHLORIDE 0.9% 1,000 ML IV SCH ×2 (00:26→17:28)
[2019-08-25] MEDS: methylPREDNISolone SOD SUC 40 MG/1 ML VIAL IV SCH ×3 (00:26→17:28)
[2019-08-25] MEDS: ALBUTEROL/IPRATROPIUM 3 ML NEB RESP TX SCH ×4 (01:11→20:15)
[2019-08-25] MEDS: LEVOTHYROXINE 75 MCG TABLET PO SCH (06:05)
[2019-08-25] MEDS: BUDESONIDE 0.25 MG/2 ML NEB RESP TX SCH ×2 (07:50→20:15)
[2019-08-25] MEDS: GLIMEPIRIDE 2 MG TABLET PO SCH ×2 (08:37→22:30)
[2019-08-25] MEDS: DOCUSATE SODIUM 100 MG CAPSULE PO SCH (08:39)
[2019-08-25] MEDS: ASPIRIN EC 325 MG TABLET PO SCH (08:39)
[2019-08-25] MEDS: PROPRANOLOL 10 MG TABLET PO SCH ×2 (08:40→22:31)
[2019-08-25] MEDS: MAGNESIUM OXIDE 400 MG TABLET PO SCH (08:40)
[2019-08-25] MEDS: FLUTICASONE 50 MCG NASAL SPRAY 16 GM BOTTLE BOTH NARES SCH (08:40)
[2019-08-25] MEDS: INSULIN REGULAR 100 UNIT/ML SUBCUT SCH ×4 (09:33→22:31)
[2019-08-25] MEDS: cefTRIAXone 500 MG in SYRINGE 1 EACH IV SCH (09:34)
[2019-08-25] MEDS ORDERED: TUBERCULIN SKIN TEST 0.1 ML SYRINGE INTRADERM ONE (16:16)
[2019-08-25] MEDS: SIMVASTATIN 10 MG TABLET PO SCH (22:31)
[2019-08-25] MEDS: AZITHROMYCIN INJ 250 MG in SODIUM CHLORIDE 0.9% 250 ML IV SCH (22:37)
[2019-08-26] MEDS: methylPREDNISolone SOD SUC 40 MG/1 ML VIAL IV SCH ×3 (00:40→17:05)
[2019-08-26] MEDS: PANTOPRAZOLE 40 MG VIAL IV SCH ×3 (00:42→21:36)
[2019-08-26] MEDS: ALBUTEROL/IPRATROPIUM 3 ML NEB RESP TX SCH ×4 (02:12→19:35)
[2019-08-26] MEDS: SODIUM CHLORIDE 0.9% 1,000 ML IV SCH ×2 (05:15→19:02)
[2019-08-26] MEDS: LEVOTHYROXINE 75 MCG TABLET PO SCH (06:20)
[2019-08-26 06:25] LABS: Basophils % 0.2 % (0.0-0.8); Hematocrit 36.4 VOL% (35.7-47.0); Hemoglobin 11.6 GM/DL (12.0-16.0); Immature Granulocytes % 1.8 %; Immature Granulocytes Absolute 0.22 #; Lymphocytes # 1.1 10*3/uL (1.4-4.0); Lymphocytes % 8.8 % (21.3-54.2); Mean Corpuscular HGB Conc 31.9 GM/DL (32-36); Mean Corpuscular Volume 89.9 FL (87-102); Mean Platelet Volume 10.4 FL (9.6-12.0); Monocytes % 2.6 % (1.7-12.7); Neutrophils % 86.6 % (38.7-73.9); Platelet Count 244 T/CUMM (130-400); Red Blood Count 4.05 MC/CUMM (3.8-5.5); Red Cell Distribution Width 15.4 % (9.3-17.3); White Blood Count 12.4 T/CUMM (4-12)
[2019-08-26 07:02] LABS: Alanine Aminotransferase 23 U/L (13-56); Albumin 2.6 G/DL (3.4-5.0); Alkaline Phosphatase 71 U/L (45-117); Aspartate Amino Transferase 24 U/L (0-37); Bilirubin,Total < 0.39 MG/DL (0.2-1.0); Blood Urea Nitrogen 21 MG/DL (7-18); Calcium 8.5 MG/DL (8.5-10.1); Estimated Glom Filtration Rate 93 ML/MIN; Glucose 166 MG/DL (74-106); Osmolality,Calculated 285.4 MOS/KG (273-304); Total Protein 6.8 G/DL (6.4-8.3)
[2019-08-26] MEDS: BUDESONIDE 0.25 MG/2 ML NEB RESP TX SCH ×2 (07:59→19:36)
[2019-08-26] MEDS: ASPIRIN EC 325 MG TABLET PO SCH (10:54)
[2019-08-26] MEDS: MAGNESIUM OXIDE 400 MG TABLET PO SCH (10:54)
[2019-08-26] MEDS: GLIMEPIRIDE 2 MG TABLET PO SCH ×2 (10:54→21:36)
[2019-08-26] MEDS: DOCUSATE SODIUM 100 MG CAPSULE PO SCH (10:57)
[2019-08-26] MEDS: INSULIN REGULAR 100 UNIT/ML SUBCUT SCH ×4 (10:57→21:40)
[2019-08-26] MEDS: SUCRALFATE 1 GM/10 ML UDCUP PO SCH ×4 (10:57→21:36)
[2019-08-26] MEDS: cefTRIAXone 500 MG in SYRINGE 1 EACH IV SCH (10:58)
[2019-08-26] MEDS: FLUTICASONE 50 MCG NASAL SPRAY 16 GM BOTTLE BOTH NARES SCH (11:00)
[2019-08-26] MEDS: PROPRANOLOL 10 MG TABLET PO SCH ×2 (11:01→21:36)
[2019-08-26] MEDS: SIMVASTATIN 10 MG TABLET PO SCH (21:36)
[2019-08-26] MEDS: AZITHROMYCIN INJ 250 MG in SODIUM CHLORIDE 0.9% 250 ML IV SCH (21:45)
[2019-08-27] MEDS: ALBUTEROL/IPRATROPIUM 3 ML NEB RESP TX SCH ×4 (00:52→20:53)
[2019-08-27] MEDS: methylPREDNISolone SOD SUC 40 MG/1 ML VIAL IV SCH ×3 (00:54→17:05)
[2019-08-27] MEDS: SODIUM CHLORIDE 0.9% 1,000 ML IV SCH ×2 (04:04→15:21)
[2019-08-27] MEDS: LEVOTHYROXINE 75 MCG TABLET PO SCH (06:11)
[2019-08-27 06:36] LABS: Basophils % 0.4 % (0.0-0.8); Hematocrit 36.6 VOL% (35.7-47.0); Hemoglobin 11.8 GM/DL (12.0-16.0); Immature Granulocytes % 2.2 %; Immature Granulocytes Absolute 0.19 #; Lymphocytes # 1.2 10*3/uL (1.4-4.0); Lymphocytes % 13.9 % (21.3-54.2); Mean Corpuscular HGB Conc 32.2 GM/DL (32-36); Mean Corpuscular Volume 89.5 FL (87-102); Mean Platelet Volume 10.3 FL (9.6-12.0); Monocytes % 3.2 % (1.7-12.7); Neutrophils % 80.3 % (38.7-73.9); Platelet Count 232 T/CUMM (130-400); Red Blood Count 4.09 MC/CUMM (3.8-5.5); Red Cell Distribution Width 15.4 % (9.3-17.3); White Blood Count 8.6 T/CUMM (4-12)
[2019-08-27] MEDS: BUDESONIDE 0.25 MG/2 ML NEB RESP TX SCH ×2 (07:48→20:53)
[2019-08-27] MEDS: ASPIRIN EC 325 MG TABLET PO SCH (09:37)
[2019-08-27] MEDS: MAGNESIUM OXIDE 400 MG TABLET PO SCH (09:37)
[2019-08-27] MEDS: GLIMEPIRIDE 2 MG TABLET PO SCH ×2 (09:37→21:06)
[2019-08-27] MEDS: SUCRALFATE 1 GM/10 ML UDCUP PO SCH ×4 (09:38→21:06)
[2019-08-27] MEDS: DOCUSATE SODIUM 100 MG CAPSULE PO SCH (09:39)
[2019-08-27] MEDS: INSULIN REGULAR 100 UNIT/ML SUBCUT SCH ×4 (09:39→21:06)
[2019-08-27] MEDS: PANTOPRAZOLE 40 MG VIAL IV SCH ×2 (09:40→21:07)
[2019-08-27] MEDS: FLUTICASONE 50 MCG NASAL SPRAY 16 GM BOTTLE BOTH NARES SCH (09:41)
[2019-08-27] MEDS: PROPRANOLOL 10 MG TABLET PO SCH ×2 (09:41→20:10)
[2019-08-27] MEDS: cefTRIAXone 500 MG in SYRINGE 1 EACH IV SCH (10:02)
[2019-08-27] MEDS: AZITHROMYCIN INJ 250 MG in SODIUM CHLORIDE 0.9% 250 ML IV SCH (21:05)
[2019-08-27] MEDS: SIMVASTATIN 10 MG TABLET PO SCH (21:07)
[2019-08-28] MEDS: methylPREDNISolone SOD SUC 40 MG/1 ML VIAL IV SCH ×3 (00:06→15:14)
[2019-08-28] MEDS: ALBUTEROL/IPRATROPIUM 3 ML NEB RESP TX SCH ×3 (00:33→14:27)
[2019-08-28] MEDS: SODIUM CHLORIDE 0.9% 1,000 ML IV SCH ×2 (04:23→09:18)
[2019-08-28] MEDS: LEVOTHYROXINE 75 MCG TABLET PO SCH (05:50)
[2019-08-28 06:23] LABS: Basophils # 0.1 10*3/uL (0.0-0.2); Basophils % 0.5 % (0.0-0.8); Hematocrit 32.3 VOL% (35.7-47.0); Hemoglobin 10.5 GM/DL (12.0-16.0); Immature Granulocytes % 4.8 %; Immature Granulocytes Absolute 0.54 #; Lymphocytes # 2.2 10*3/uL (1.4-4.0); Lymphocytes % 19.6 % (21.3-54.2); Mean Corpuscular HGB Conc 32.5 GM/DL (32-36); Mean Platelet Volume 9.7 FL (9.6-12.0); Neutrophils % 71.1 % (38.7-73.9); Platelet Count 217 T/CUMM (130-400); Red Blood Count 3.63 MC/CUMM (3.8-5.5); Red Cell Distribution Width 15.4 % (9.3-17.3); White Blood Count 11.3 T/CUMM (4-12)
[2019-08-28 06:30] LABS: Calcium 7.7 MG/DL (8.5-10.1); Osmolality,Calculated 294.1 MOS/KG (273-304)
[2019-08-28 06:54] LABS: Hypochromasia 1+; Lymphocytes 14 % (20-55); Platelet Estimate Adequate; Segmented Neutrophils 84 % (50-85); Total Cells Counted 100
[2019-08-28] MEDS: BUDESONIDE 0.25 MG/2 ML NEB RESP TX SCH (08:05)
[2019-08-28] MEDS ORDERED: INSULIN GLARGINE 100 UNIT/ML SUBCUT SCH (09:00)
[2019-08-28] MEDS: SUCRALFATE 1 GM/10 ML UDCUP PO SCH ×2 (09:14→12:58)
[2019-08-28] MEDS: INSULIN REGULAR 100 UNIT/ML SUBCUT SCH ×2 (09:15→12:57)
[2019-08-28] MEDS: PANTOPRAZOLE 40 MG VIAL IV SCH (09:16)
[2019-08-28] MEDS: ASPIRIN EC 325 MG TABLET PO SCH (09:18)
[2019-08-28] MEDS: PROPRANOLOL 10 MG TABLET PO SCH (09:18)
[2019-08-28] MEDS: DOCUSATE SODIUM 100 MG CAPSULE PO SCH (09:18)
[2019-08-28] MEDS: GLIMEPIRIDE 2 MG TABLET PO SCH (09:18)
[2019-08-28] MEDS: MAGNESIUM OXIDE 400 MG TABLET PO SCH (09:18)
[2019-08-28] MEDS: FLUTICASONE 50 MCG NASAL SPRAY 16 GM BOTTLE BOTH NARES SCH (09:24)
[2019-08-28] MEDS: cefTRIAXone 500 MG in SYRINGE 1 EACH IV SCH (09:38)
[2019-08-28 13:47] VITALS: BP 156/81
== END 2019-08-28 16:05 | DRG 202 ==
LOC: EDBD → EDUNIT# → N.EDINP 09:50 → N.ED 09:50 → N.5E 13:50 → N.2W 15:34 → N.5E 17:30
PROVIDERS: ADMIT Internal Medicine; ATTEND Internal Medicine

== ENCOUNTER 2020-07-10 09:33 | Inpatient (IN) ==
[2020-07-10] MEDS ORDERED: SODIUM CHLORIDE 0.9% 1,000 ML IV STA ×3 (09:51→12:58)
[2020-07-10 10:34] LABS: ABG HCO3 11.8 MMOL/L (20-26); ABG Oxygen Saturation 99.9 % (95-100); ABG PH 7.271 (7.35-7.45)
[2020-07-10 10:36] LABS: ABG PCO2 18.8 MM HG (35-48)
[2020-07-10 10:46] LABS: Basophils % 0.2 % (0.0-0.8); Eosinophils % 0.1 % (0.00-10.9); Hematocrit 34.7 VOL% (35.7-47.0); Hemoglobin 10.8 GM/DL (12.0-16.0); Immature Granulocytes % 2.2 %; Immature Granulocytes Absolute 0.48 #; Lymphocytes # 2.4 10*3/uL (1.4-4.0); Mean Corpuscular HGB Conc 31.1 GM/DL (32-36); Mean Corpuscular Volume 90.4 FL (87-102); Mean Platelet Volume 11.6 FL (9.6-12.0); Monocytes % 7.8 % (1.7-12.7); NRBC # 0.19 10*3/uL; Neutrophils % 78.7 % (38.7-73.9); Platelet Count 233 T/CUMM (130-400); Red Blood Count 3.84 MC/CUMM (3.8-5.5); Red Cell Distribution Width 24.1 % (9.3-17.3); White Blood Count 22.3 T/CUMM (4-12)
[2020-07-10 11:05] LABS: PT Patient Result 30.4 SECS (9.8-11.9); Partial Thromboplastin Time 59.2 SECS (23.9-33.8)
[2020-07-10 11:06] LABS: Lymphocytes 11 % (20-55); Platelet Estimate Adequate; Segmented Neutrophils 79 % (50-85); Total Cells Counted 100
[2020-07-10] MEDS ORDERED: PIPERACILLIN/TAZOBACTAM 3,375 MG in SODIUM CHLORIDE 0.9% 100 ML IV STA ×2 (11:20→11:44)
[2020-07-10 11:33] LABS: Bacteria,Urine Many /HPF (Few); Mucus,Urine Many /LPF (Occasional); RBC,Urine 2954 /HPF (0-4); Squamous Epithelial Cell,Urine Many /HPF (0-10); Urine Color Brown (Yellow); WBC,Urine 35544 /HPF (0-6)
[2020-07-10 11:34] LABS: Bilirubin,Urine 4 mg/dL (Negative); Blood, Urine Moderate mg/dL (Negative); Glucose,Urine (UA) Negative (Negative); Ketones,Urine Negative (Negative); Nitrite,Urine Negative (Negative); Protein,Urine >500 MG/DL; Urine Appearance Turbid (Clear)
[2020-07-10 12:18] LABS: Albumin 1.8 G/DL (3.4-5.0); Calcium 8.8 MG/DL (8.5-10.1); Osmolality,Calculated 318.1 MOS/KG (273-304); Potassium 5.4 MMOL/L (3.5-5.1); Total Protein 6.2 G/DL (6.4-8.3)
[2020-07-10] MEDS ORDERED: GENTAMICIN INJ 120 MG in SODIUM CHLORIDE 0.9% 100 ML IV STA (12:36)
[2020-07-10] MEDS ORDERED: LEVOFLOXACIN INJ 500 MG in PREMIX 1 EACH IV STA (12:38)
[2020-07-10] MEDS ORDERED: EPINEPHrine 1 MG/10 ML SYRINGE IV ONE (13:43)
[2020-07-10] MEDS ORDERED: EPINEPHrine 1 MG/10 ML SYRINGE ONE (13:43)
== END 2020-07-10 16:06 | disposition expired | DRG 871 ==
LOC: EDBD → EDUNIT# → N.ED 09:33 → N.EDINP 12:32
PROVIDERS: ADMIT Internal Medicine; ATTEND Internal Medicine